=== PATIENT | female | born 1960 | race Caucasian/White ===

== ENCOUNTER 2017-01-19 09:35 | Emergency (ER) | payer MEDICAID, OTHER ==
[~2017-01-19] VITALS: Wt 108.0 kg
[2017-01-19] MEDS ORDERED: ALBUTEROL 0.5% (NEB) 2.5 MG/0.5 ML AMP HHN STA (10:23)
[2017-01-19] MEDS ORDERED: IPRATROPIUM (NEB) 0.5 MG/2.5 ML AMP HHN ONE (10:30)
[2017-01-19] MEDS ORDERED: METHYLPREDNISOLONE 125 MG INJ IM ONE (10:30)
--- NOTE | 2017-01-19 10:53 | RADRPT ---
PROCEDURE: XR Chest. CLINICAL INDICATION: sob, asthma TECHNIQUE: Single frontal chest x-ray. COMPARISON: None. FINDINGS: There is minimal prominence of the lung interstitium which could be secondary to history of asthma. No focal lung consolidation is seen. The heart is not enlarged. ECG leads projected over the chest . IMPRESSION: There is minimal prominence of the lung interstitium which could be secondary to history of asthma. RPTAT: HJES .Darnell Tesfaye MD, MD Date Time Electronically viewed and signed by .Darnell Tesfaye MD, on 01/19/2017 10:53 .S/
[2017-01-19] MEDS ORDERED: ACETAMINOPHEN 325 MG TAB PO ONE (11:00)
[2017-01-19] MEDS ORDERED: ALBU18HF INHALATION (11:00)
[2017-01-19] MEDS ORDERED: ALBU2.5V3 NEB (11:00)
[2017-01-19] MEDS ORDERED: PRED20TA PO (11:00)
[2017-01-19] MEDS ORDERED: AZIT250T94 PO (11:00)
--- NOTE | 2017-01-19 11:04 | ERD ---
ER Documentation Chief Complaint Date/Time DATE: 01/19/17 TIME: 11:02 Chief Complaint COGH, WHEEZING, HX OF ASTHMA HPI This 56-year-old female presents with cough and wheezing for the last 3 days. She has a history of asthma and is out of her inhaler as well as medication for her nebulizer. She denies fevers. She has slight productive sputum. She has some mild allergic anterior chest pain. She denies vomiting, abdominal pain, diarrhea. ROS All systems reviewed and are negative except as per history of present illness. Medications Home Meds Active Scripts Albuterol Sulfate* (Albuterol Sulfate* Neb) 0.083%-3 Ml Neb, 2.5 MG NEB Q4 Y for SHORTNESS OF BREATH, #30 EA Prov:SHANIQUE RITCHIE MD 01/19/17 Albuterol Sulfate* (Ventolin HFA*) 18 Gm Hfa.aer.ad, 2 PUFF INHALATION Q4H, #1 INHALER Prov:SHANIQUE RITCHIE MD 01/19/17 Azithromycin* (Zithromax*) 250 Mg Tablet, 250 MG PO .ZPACK DIRECTED, #6 TAB TAKE 500 MG (2 TABS) THE FIRST DAY THEN 250 MG (1 TAB) DAYS 2-5 Prov:SHANIQUE RITCHIE MD 01/19/17 Prednisone* (Prednisone*) 20 Mg Tab, 60 MG PO DAILY for 5 Days, TAB 60 mg by mouth for 2 days then 40 mg by mouth for 3 days Prov:SHANIQUE RITCHIE MD 01/19/17 PMhx/Soc Medical and Surgical Hx: pt denies Surgical Hx Hx Respiratory Disorders: Yes (asthma) Hx Alcohol Use: No Hx Tobacco Use: No Physical Exam Vitals Vital Signs Date Time Temp Pulse Resp B/P Pulse Ox O2 Delivery O2 Flow Rate FiO2 01/19/17 10:43 89 21 96 21 01/19/17 09:50 99.0 77 19 129/82 98 Physical Exam Const: [] Alert, [id number] per Head: Atraumatic Eyes: Normal Conjunctiva ENT: Normal External Ears, Nose and Mouth. Neck: Full range of motion..~ No meningismus. Resp: Clear to auscultation bilaterally. Scattered wheezing without rales or retractions appreciated. Cardio: Regular rate and rhythm, no murmurs Abd: Soft, non tender, non distended. Normal bowel sounds Skin: No petechiae or rashes Back: No midline or flank tenderness Ext: No cyanosis, or edema Neur: Awake and alert Psych: Normal Mood and Affect Results 24 hrs Current Medications Medications (Trade) Dose Ordered Sig/Hernandez Route PRN Reason Start Time Stop Time Status Last Admin Dose Admin Albuterol (Proventil 0.5% (Neb)) 5 mg ONCE STAT HHN 01/19/17 10:23 01/19/17 10:26 DC 01/19/17 10:43 Ipratropium Upatoi (Atrovent 0.02% (Neb)) 0.5 mg ONCE ONCE HHN 01/19/17 10:30 01/19/17 10:31 DC 01/19/17 10:43 Methylprednisolone Sodium Succinate (Solu-Medrol) 125 mg ONCE ONCE IM 01/19/17 10:30 01/19/17 10:31 DC 01/19/17 10:49 Acetaminophen (Tylenol Tab) 650 mg ONCE ONCE PO 01/19/17 11:00 01/19/17 11:01 Procedures/MDM Chest X-ray 1V Interpreted by me: Soft Tissue: No acute abnormalities Bones: No acute abnormalities Mediastinum/Cardiac Silhouette/Lungs: [No acute abnormalities]. Impression- normal 1 view chest x-ray EKG: Rate/Rhythm: [Normal Sinus Rhythm] rate equals 74 QRS, ST, T-waves: [No changes consistent w/ acute ischemia] Impression: [No evidence of ischemia or arrhythmia] Patient was given albuterol 5 mg and Atrovent nebulizer. Patient is given Solu- Medrol 125 mg IM. Patient had clear lungs on serial exam without evidence of retractions, rales, hypoxemia. Patient has signs and symptoms of acute URI and history of asthma with wheezing. She will treated with a prednisone taper, refills of her Ventolin and albuterol and Zithromax. The patient was stable with no new complaints during the ER course. Clinically, there is no current evidence to suggest meningitis, sepsis, acute abdomen, pneumonia, acute coronary syndrome, pulmonary embolism, or any other emergent condition appearing to require further evaluation or hospitalization. The patient should certainly return for any new or worsening symptoms per the aftercare instructions. They should otherwise follow-up with her primary care doctor for reevaluation this week. Departure Diagnosis: Primary Impression: URI, acute Additional Impression: Wheezing Condition: Stable Patient Instructions: Bronchitis With Wheezing (Adult) Additional Instructions: Cheque otro vez con guadalupe doctor primario en el proximo mendez or regresa para mas o nueva simptomas. SHANIQUE RITCHIE MD Jan 19, 2017 11:04
[2017-01-19 11:20] VITALS: BP 161/87; PULSE 68; RESP 20; TEMP 98.3
== END 2017-01-19 11:21 | disposition home or self-care (01) ==
LOC: FTE 09:35
DX: J06.9 Acute upper respiratory infection, unspecified (principal); R06.2 Wheezing; R06.02 Shortness of breath
CPT/HCPCS: 71010; 93005; 94664; 96372; J2930; Z7502; Z7610

== ENCOUNTER 2017-07-07 11:55 | Emergency (ER) | payer MEDICAID, OTHER ==
[~2017-07-07] VITALS: Ht 160 cm; Wt 107.0 kg
[~2017-07-07 11:55] MED LIST: ALBU18HF INHALATION; ALBU2.5V3 NEB; AZIT250T94 PO; PRED20TA PO
[2017-07-07 12:08] VITALS: Ht 160 cm; Wt 107.0 kg
[2017-07-07] MEDS ORDERED: DEXAMETHASONE 10 MG/ML 1 ML INJ IM STA (14:32)
[2017-07-07] MEDS ORDERED: ALBUTEROL 0.5% (NEB) 2.5 MG/0.5 ML AMP NEB STA (14:32)
--- NOTE | 2017-07-07 15:18 | ERD ---
ER Documentation Chief Complaint Date/Time DATE: 07/07/17 TIME: 15:15 Chief Complaint ACUTE ASTHMA, SOB, HEADACHE HPI This is a 57-year-old female presenting to emergency department with shortness of breath and difficulty breathing. Patient has history of asthma and has been using her inhalers at home. Patient states she has dry nonproductive cough. Patient states she feels like she has to cough and she can't get the "phlegm" out of her lungs. No difficulty swallowing or drooling. No sore throat. No earache or headache. ROS All systems reviewed and are negative except as per history of present illness. Medications Home Meds Active Scripts Albuterol Sulfate* (Proair HFA*) 8.5 Gm Hfa.aer.ad, 2 PUFF INH Q4, #1 INHALER Prov:MIRTHA BRAN NP 07/07/17 Ibuprofen* (Motrin*) 600 Mg Tab, 600 MG PO Q6, #20 TAB Prov:MIRTHA BRAN NP 07/07/17 Prednisone* (Prednisone*) 20 Mg Tab, 40 MG PO DAILY for 4 Days, TAB Prov:MIRTHA BRAN NP 07/07/17 Albuterol Sulfate* (Albuterol Sulfate* Neb) 0.083%-3 Ml Neb, 2.5 MG NEB Q4 Y for SHORTNESS OF BREATH, #30 EA Prov:SHANIQUE RITCHIE MD 01/19/17 Albuterol Sulfate* (Ventolin HFA*) 18 Gm Hfa.aer.ad, 2 PUFF INHALATION Q4H, #1 INHALER Prov:SHANIQUE RITCHIE MD 01/19/17 Azithromycin* (Zithromax*) 250 Mg Tablet, 250 MG PO .ZPACK DIRECTED, #6 TAB TAKE 500 MG (2 TABS) THE FIRST DAY THEN 250 MG (1 TAB) DAYS 2-5 Prov:SHANIQUE RITCHIE MD 01/19/17 Prednisone* (Prednisone*) 20 Mg Tab, 60 MG PO DAILY for 5 Days, TAB 60 mg by mouth for 2 days then 40 mg by mouth for 3 days Prov:SHANIQUE RITCHIE MD 01/19/17 Allergies Allergies: Coded Allergies: No Known Allergy (Unverified , 07/07/17) PMhx/Soc Hx Respiratory Disorders: Yes (asthma) Hx Alcohol Use: No Hx Tobacco Use: No Physical Exam Vitals Vital Signs Date Time Temp Pulse Resp B/P Pulse Ox O2 Delivery O2 Flow Rate FiO2 07/07/17 15:47 98.3 87 20 113/63 98 Room Air 07/07/17 14:46 82 24 98 21 07/07/17 12:08 98.8 82 20 118/74 98 Physical Exam Const: Alert, non toxic appearing Head: Atraumatic Eyes: Normal Conjunctiva ENT: Normal External Ears, Nose and Mouth. Neck: Full range of motion..~ No meningismus. Resp: Clear to auscultation bilaterally Cardio: Regular rate and rhythm, no murmurs Abd: Soft, non tender, non distended. Normal bowel sounds Skin: No petechiae or rashes Back: No midline or flank tenderness Ext: No cyanosis, or edema Neur: Awake and alert Psych: Normal Mood and Affect Results 24 hrs Current Medications Medications (Trade) Dose Ordered Sig/Hernandez Route PRN Reason Start Time Stop Time Status Last Admin Dose Admin Albuterol (Proventil 0.5% (Neb)) 10 mg ONCE STAT NEB 07/07/17 14:32 07/07/17 14:34 DC 07/07/17 14:44 Dexamethasone (Decadron) 10 mg ONCE STAT IM 07/07/17 14:32 07/07/17 14:34 DC 07/07/17 14:40 Ibuprofen (Motrin) 600 mg ONCE ONCE PO 07/07/17 15:30 07/07/17 15:31 DC 07/07/17 15:45 Procedures/[place] [id number] Radiology Main Line: [phone] DIAGNOSTIC IMAGING REPORT Patient: PAUL ABDALLA : 1960 Age: 57 Sex: F MR #: [id number] DOS: 07/07/17 1432 Ordering MD: MIRTHA BRAN NP Location: [facility] Room/Bed: PROCEDURE: XR Chest 1 View. CLINICAL INDICATION: Cough and wheeze. History of asthma. TECHNIQUE: AP view of the chest was obtained. COMPARISON: None. FINDINGS: The cardiomediastinal silhouette is within normal limits. The lungs are hyperexpanded. Subsegmental atelectasis is noted in the bilateral lower lobes. No consolidations are identified. No pneumothorax is seen. Osseous structures are intact. IMPRESSION: Hyperexpanded lungs. Atelectasis in the bilateral lower lobes. MDM: This is a 57-year-old female presenting to emergency department with shortness of breath and difficulty breathing starting today. Patient has a history of asthma and has been using her inhalers at home. No signs or symptoms of respiratory distress. Oxygen saturation 98% on room air. No fevers or chills. Patient given albuterol nebulizer treatment while in ED. Patient given Decadron 10 mg IM. Chest x-ray reviewed by radiologist as hyperexpanded lungs. Atelectasis in the bilateral lower lobes. Patient states she is feeling much better and requesting refill of her Advair inhaler. Low suspicion for pneumonia, pleural effusion, pneumothorax or acute CO. Differential diagnosis includes but not limited to URI, influenza, otitis media , otitis externa, asthma exacerbation, croup, bronchitis, bronchiolitis and costochondritis. Patient is appropriate for outpatient management and will be given prescription for prednisone, ibuprofen, ProAir inhaler, and Advair inhaler. Instructed patient to follow-up with primary care provider in the next 2-3 days for reassessment and additional management. Return to ED for any high fever, chest pain, difficulty breathing, shortness breath, wheezing, vomiting, diarrhea, abdominal pain or any new or worsening symptoms. Patient verbalizes understanding. All questions answered at discharge. Departure Diagnosis: Primary Impression: Asthma with acute exacerbation Asthma severity: unspecified severity Qualified Code: J45.901 - Asthma with acute exacerbation, unspecified asthma severity Condition: Stable MIRTHA BRAN NP Jul 07, 2017 15:18
--- NOTE | 2017-07-07 15:23 | RADRPT ---
PROCEDURE: XR Chest 1 View. CLINICAL INDICATION: Cough and wheeze. History of asthma. TECHNIQUE: AP view of the chest was obtained. COMPARISON: None. FINDINGS: The cardiomediastinal silhouette is within normal limits. The lungs are hyperexpanded. Subsegmental atelectasis is noted in the bilateral lower lobes. No consolidations are identified. No pneumothor ax is seen. Osseous structures are intact. IMPRESSION: Hyperexpanded lungs. Atelectasis in the bilateral lower lobes. RPTAT: AA .Seamus Matthews MD, MD Date Time Electronically viewed and signed by .Seamus Matthews MD, on 07/07/2017 15:23 .P/
[2017-07-07] MEDS ORDERED: IBUPROFEN 600 MG TAB PO ONE (15:30)
[2017-07-07 15:47] VITALS: BP 113/63; PULSE 87; RESP 20; TEMP 98.3
[2017-07-07] MEDS ORDERED: IBUP-1542 PO (16:32)
[2017-07-07] MEDS ORDERED: ALBU8.5H3 INH (16:32)
[2017-07-07] MEDS ORDERED: PRED20TA PO (16:32)
== END 2017-07-07 17:12 | disposition home or self-care (01) ==
LOC: FTE 11:55
DX: J45.901 Unspecified asthma with (acute) exacerbation (principal)
CPT/HCPCS: 71010; 94644; 96372; J1100; Z7502; Z7610